=== PATIENT | male | born 1995 | race Two or more races ===

== ENCOUNTER 2022-11-26 18:23 | Emergency (ER) | payer OTHER ==
[~2022-11-26] VITALS: Ht 182.9 cm; Wt 83.9 kg
[2022-11-26] MEDS ORDERED: TRUVADA 100 MG1 EACH (18:37)
[2022-11-26] MEDS ORDERED: BUPROPION XL450 MG PO (18:37)
== END 2022-11-26 22:51 | disposition home or self-care (01) ==
LOC: ER 18:23
DX: R10.31 Right lower quadrant pain (principal)